=== PATIENT | male | born 1960 | race Caucasian/White ===

== ENCOUNTER → 2020-03-28 | Outpatient (CLI) | payer OTHER ==
[~2020-03-28] MED LIST: CEPH500 PO; HYDR1TAB94 PO; IBUP800 PO; WARF5 PO
== END | disposition home or self-care (01) ==
LOC: LAB UCHC 13:48 → LAB SHORT 13:48
DX: I83.212 Varicose veins of right lower extremity with both ulcer of calf and inflammation (principal); I83.222 Varicose veins of left lower extremity with both ulcer of calf and inflammation
CPT/HCPCS: 87070; 87075; 87205

== ENCOUNTER 2023-04-26 18:03 | Emergency (ER) | payer OTHER ==
[~2023-04-26] VITALS: Ht 195.6 cm; Wt 147.0 kg
[2023-04-26 19:20] VITALS: BP 123/68
== END 2023-04-26 19:30 | disposition home or self-care (01) ==
LOC: ER 18:03
DX: L03.115 Cellulitis of right lower limb (principal); Z79.01 Long term (current) use of anticoagulants
CPT/HCPCS: 99283; A9270